=== PATIENT | female | born 1975 | race Caucasian/White ===

== ENCOUNTER 2018-08-14 11:34 | Inpatient (IN) | payer OTHER, MEDICAID ==
[~2018-08-14] VITALS: Ht 157.5 cm; Wt 85.3 kg
[~2018-08-14 11:34] MED LIST: ASPI-1159 PO; ATOR-2 PO; CARV6.2548 PO; CETI-101 PO; CLOP75TA33 PO; CYCL5TAB PO; GLIM4TAB2 PO; ISOS60TA4 PO; JARDIANCE PO; LOSA25TA12 PO; N325 SL; OMEP20TA15 PO; PENTOXIFYLLINE ER PO; PIOG45TA5 PO
[2018-08-14 13:10] LABS: CLARITY URINE CLEAR (CLEAR); COLOR URINE YELLOW (YELLOW); KETONES URINE NEGATIVE (NEGATIVE); LEUKOCYTE ESTERASE URINE NEGATIVE (NEGATIVE); NITRITE URINE NEGATIVE (NEGATIVE); OCCULT BLOOD URINE NEGATIVE (NEGATIVE); PROTEIN URINE NEGATIVE (NEGATIVE); SPECIFIC GRAVITY URINE 1.006 (1.005-1.030); UROBILINOGEN URINE 0.2 E.U./dL (0.2-1.0)
[2018-08-14 13:41] LABS: *AMPHETAMINES SCREEN URINE NEGATIVE (NEGATIVE); *BARBITURATES SCREEN URINE NEGATIVE (NEGATIVE); *BENZODIAZEPINES SCREEN URINE NEGATIVE (NEGATIVE); *COCAINE SCREEN URINE NEGATIVE (NEGATIVE); CANNABINOID URINE SCREEN NEGATIVE (NEGATIVE); OPIATES URINE SCREEN NEGATIVE (NEGATIVE); PHENCYCLIDINE URINE SCREEN NEGATIVE (NEGATIVE)
[2018-08-14 13:42] LABS: METHADONE URINE SCREEN NEGATIVE (NEGATIVE)
[2018-08-14 13:46] LABS: BASOPHILS % 0.7 % (0.0-2.0); EOSINOPHILS % 1.4 % (0.0-5.0); HEMATOCRIT. 38.2 % (36.0-48.0); HEMOGLOBIN. 12.7 g/dL (12.0-16.0); LYMPHOCYTES % 41.7 % (20.0-50.0); MEAN CORPUSCULAR HEMOGLOBIN 28.2 pg (28.0-32.0); MONOCYTES % 8.4 % (2.0-8.0); NEUTROPHILS % 47.8 % (40.0-76.0); PLATELET 305 x1000/uL (130-400); RED BLOOD CELL COUNT 4.49 mill/uL (4.2-5.4); RED CELL DISTRIBUTION WIDTH 16.4 % (11.6-14.6)
[2018-08-14 13:51] LABS: CHLORIDE 106 mEq/L (98-107)
[2018-08-14 13:53] LABS: PARTIAL THROMBOPLASTIN TIME 27.1 sec (23.4-31.0); PROTHROMBIN TIME 10.4 sec (9.1-11.1)
[2018-08-14 13:54] LABS: ETHANOL BLOOD < 10 mg/dL
[2018-08-14 14:00] LABS: CREATINE KINASE 91 IU/L (26-192); HCG SCREEN NEGATIVE
[2018-08-14 14:02] LABS: CREATINE KINASE MB FRACTION < 1.0 ng/mL (0.5-3.6)
[2018-08-14] MEDS ORDERED: SODIUM CHLORIDE 0.9% 1,000 ML IV ONE (14:05)
[2018-08-14] MEDS ORDERED: ASPIRIN 81MG TABLET PO ONE (14:15)
[2018-08-14 17:33] VITALS: BP 133/64
[2018-08-14 17:38] VITALS: BP 133/64
[2018-08-14] MEDS ORDERED: ONDANSETRON HCL 4MG/2ML INJ IV PRN (18:00)
[2018-08-14] MEDS ORDERED: CLONIDINE 0.1MG TABLET PO PRN (18:00)
[2018-08-14] MEDS ORDERED: MORPHINE SULFATE 2 MG/ML CPJ (NOT FOR IM USE) IV PRN (18:00)
[2018-08-14] MEDS ORDERED: DEXTROSE 50% WATER 50ML SYRINGE IV PRN (18:00)
[2018-08-14] MEDS ORDERED: GUAIFENESIN 200MG/10ML SUGAR FREE UDC PO PRN (18:00)
[2018-08-14] MEDS ORDERED: LORAZEPAM 2MG/ML CPJ IV PRN (18:00)
[2018-08-14] MEDS ORDERED: HYDROCODONE/ACETAMINOPHEN 5/325MG TABLET PO PRN (18:00)
[2018-08-14] MEDS ORDERED: DOCUSATE SODIUM 100MG CAPSULE PO PRN (18:00)
[2018-08-14] MEDS ORDERED: NA PHOS,M-B/NA PHOS,DI-BA ENEMA 118ML PR PRN (18:00)
[2018-08-14] MEDS ORDERED: MAGNESIUM/ALUMINUM HYDROXIDE/SIMETHICONE 30ML UDC PO PRN (18:00)
[2018-08-14] MEDS ORDERED: ACETAMINOPHEN 325MG TABLET PO PRN (18:00)
[2018-08-14] MEDS ORDERED: IPRATROPIUM/ALBUTEROL 0.5-3(2.5)MG/3ML NEB INH PRN (18:00)
[2018-08-14] MEDS ORDERED: DIPHENHYDRAMINE 50MG/ML VIAL IV PRN (18:00)
[2018-08-14] MEDS ORDERED: MORPHINE SULFATE 10MG/5ML ORAL SOLN UDC PO PRN (18:45)
[2018-08-14 20:00] VITALS: BP 112/68
[2018-08-14] MEDS: BLOOD SUGAR DIAGNOSTIC STRIP TEST SCH (21:00)
[2018-08-14] MEDS: INSULIN LISPRO 100 UNITS/ML SUBCUT SCH (21:00)
[2018-08-14] MEDS ORDERED: ATORVASTATIN CALCIUM 40MG TABLET PO SCH (21:00)
[2018-08-14] MEDS: SODIUM CHLORIDE 0.9% INJ 3ML FLUSH IVF SCH (21:27)
[2018-08-14 23:16] LABS: CREATINE KINASE 72 IU/L (26-192)
[2018-08-14 23:17] LABS: CREATINE KINASE MB FRACTION < 1.0 ng/mL (0.5-3.6)
[2018-08-15] VITALS: BP 104/64
[2018-08-15 04:00] VITALS: BP 112/75
[2018-08-15] MEDS: SODIUM CHLORIDE 0.9% INJ 3ML FLUSH IVF SCH ×2 (05:03→14:00)
[2018-08-15] MEDS: BLOOD SUGAR DIAGNOSTIC STRIP TEST SCH ×2 (06:27→12:02)
[2018-08-15] MEDS: INSULIN LISPRO 100 UNITS/ML SUBCUT SCH ×2 (06:27→12:06)
[2018-08-15 07:45] LABS: BASOPHILS % 0.5 % (0.0-2.0); EOSINOPHILS % 1.4 % (0.0-5.0); HEMATOCRIT. 38.5 % (36.0-48.0); LYMPHOCYTES % 33.9 % (20.0-50.0); MEAN CORPUSCULAR HEMOGLOBIN 28.5 pg (28.0-32.0); MEAN CORPUSCULAR VOLUME 84.4 fL (81.0-99.0); MEAN PLATELET VOLUME 7.4 fl (7.4-10.4); MONOCYTES % 7.3 % (2.0-8.0); NEUTROPHILS % 56.9 % (40.0-76.0); PLATELET 314 x1000/uL (130-400); RED BLOOD CELL COUNT 4.56 mill/uL (4.2-5.4); RED CELL DISTRIBUTION WIDTH 15.8 % (11.6-14.6)
[2018-08-15 07:50] LABS: CHLORIDE 104 mEq/L (98-107)
[2018-08-15 07:59] LABS: CREATINE KINASE MB FRACTION < 1.0 ng/mL (0.5-3.6)
[2018-08-15 08:00] VITALS: BP 116/74
[2018-08-15 08:07] LABS: LDL CHOLESTEROL 99 mg/dL (5-100)
[2018-08-15 08:08] LABS: CREATINE KINASE 60 IU/L (26-192)
[2018-08-15 08:11] LABS: HDL CHOLESTEROL 33 mg/dL (40-59)
[2018-08-15 08:13] LABS: T4 FREE 1.03 ng/dL (0.76-1.46)
[2018-08-15] MEDS ORDERED: CARVEDILOL 3.125 MG TABLET PO SCH (09:00)
[2018-08-15] MEDS ORDERED: ASPIRIN 81MG EC TABLET PO SCH (09:00)
[2018-08-15] MEDS ORDERED: CLOPIDOGREL 75MG TABLET PO SCH (09:00)
[2018-08-15] MEDS ORDERED: LOSARTAN POTASSIUM 25 MG TABLET PO SCH (09:00)
[2018-08-15 12:04] VITALS: BP 112/70
[2018-08-15 16:05] VITALS: BP 101/57
== END 2018-08-15 16:35 | disposition home or self-care (01) | DRG 207 ==
LOC: ER 11:34 → 8WST 14:15 → ENRESERV 15:28 → 8WST 17:49
PROVIDERS: ADMIT Internal Medicine; ATTEND Internal Medicine
DX: I95.9 Hypotension, unspecified (principal); I11.9 Hypertensive heart disease without heart failure; D64.9 Anemia, unspecified; E78.00 Pure hypercholesterolemia, unspecified; E78.49 Other hyperlipidemia; E11.9 Type 2 diabetes mellitus without complications; R07.9 Chest pain, unspecified; E78.5 Hyperlipidemia, unspecified; I25.10 Atherosclerotic heart disease of native coronary artery without angina pectoris; M79.671 Pain in right foot; I25.2 Old myocardial infarction; Z82.49 Family history of ischemic heart disease and other diseases of the circulatory system; Z95.1 Presence of aortocoronary bypass graft; Z95.5 Presence of coronary angioplasty implant and graft; Z79.82 Long term (current) use of aspirin; Z79.899 Other long term (current) drug therapy
CPT/HCPCS: 36415; 71045; 73630; 80061; 80305; 82550; 82553; 82962; 83036; 83880; 84439; 84443; 84484; 84703; 93005; 93306; 99285; G0482; J1815; J7030

== ENCOUNTER 2018-10-26 14:50 | Emergency (ER) | payer MEDICAID ==
[~2018-10-26] VITALS: Ht 154.9 cm; Wt 82.0 kg
[2018-10-26] MEDS ORDERED: FURO20TA4 MT (15:51)
[2018-10-26] MEDS ORDERED: IBUPROFEN 600MG TABLET PO ONE (16:30)
[2018-10-26 16:43] VITALS: BP 91/63
== END 2018-10-26 17:04 | disposition home or self-care (01) ==
LOC: ER 14:50
DX: S76.912A Strain of unspecified muscles, fascia and tendons at thigh level, left thigh, initial encounter (principal); S76.911A Strain of unspecified muscles, fascia and tendons at thigh level, right thigh, initial encounter; E11.9 Type 2 diabetes mellitus without complications; E78.00 Pure hypercholesterolemia, unspecified; I11.9 Hypertensive heart disease without heart failure; Z98.62 Peripheral vascular angioplasty status; Z95.1 Presence of aortocoronary bypass graft; Z79.82 Long term (current) use of aspirin; Z79.899 Other long term (current) drug therapy; X58.XXXA Exposure to other specified factors, initial encounter; Y93.89 Activity, other specified; Y92.89 Other specified places as the place of occurrence of the external cause; Y99.8 Other external cause status
CPT/HCPCS: 99282

== ENCOUNTER 2019-03-08 19:55 | Emergency (ER) | payer MEDICAID ==
[~2019-03-08] VITALS: Ht 157.5 cm; Wt 84.0 kg
[~2019-03-08 19:55] MED LIST changes: -ASPI-1159 PO; +ASPI-1393 PO; +FURO20TA4 MT; -LOSA25TA12 PO; +LOSA25TA26 PO
[2019-03-08 20:31] VITALS: BP 125/69
== END 2019-03-08 22:37 | disposition left against medical advice (07) ==
LOC: ER 19:55
DX: Z53.21 Procedure and treatment not carried out due to patient leaving prior to being seen by health care provider (principal)
CPT/HCPCS: 93005

== ENCOUNTER 2019-03-14 13:05 | Inpatient (IN) | payer OTHER, MEDICAID ==
[~2019-03-14] VITALS: Ht 157.5 cm; Wt 83.6 kg
[2019-03-14 14:07] LABS: CHLORIDE 107 mEq/L (98-107)
[2019-03-14 14:17] LABS: HCG SCREEN NEGATIVE
[2019-03-14] MEDS ORDERED: ASPIRIN 81MG TABLET PO ONE (15:30)
[2019-03-14] MEDS ORDERED: NITROGLYCERIN 0.4MG TABLET SL SL ONE (15:30)
[2019-03-14 16:36] LABS: BASOPHILS % 0.7 % (0.0-2.0); EOSINOPHILS % 1.2 % (0.0-5.0); HEMATOCRIT. 38.5 % (36.0-48.0); HEMOGLOBIN. 12.8 g/dL (12.0-16.0); LYMPHOCYTES % 35.8 % (20.0-50.0); MEAN CORPUSCULAR HEMOGLOBIN 28.6 pg (28.0-32.0); MEAN PLATELET VOLUME 7.2 fl (7.4-10.4); NEUTROPHILS % 55.3 % (40.0-76.0); PLATELET 297 x1000/uL (130-400); RED BLOOD CELL COUNT 4.48 mill/uL (4.2-5.4); RED CELL DISTRIBUTION WIDTH 16.5 % (11.6-14.6)
[2019-03-14] MEDS ORDERED: CLONIDINE 0.1MG TABLET PO PRN (17:45)
[2019-03-14] MEDS ORDERED: DOCUSATE SODIUM 100MG CAPSULE PO PRN (17:45)
[2019-03-14] MEDS ORDERED: ACETAMINOPHEN 325MG TABLET PO PRN (17:45)
[2019-03-14] MEDS ORDERED: GUAIFENESIN 200MG/10ML SUGAR FREE UDC PO PRN (17:45)
[2019-03-14] MEDS ORDERED: LORAZEPAM 2MG/ML CPJ IV PRN (17:45)
[2019-03-14] MEDS ORDERED: MAGNESIUM/ALUMINUM HYDROXIDE/SIMETHICONE 30ML UDC PO PRN (17:45)
[2019-03-14] MEDS ORDERED: IPRATROPIUM/ALBUTEROL 0.5-3(2.5)MG/3ML NEB INH PRN (17:45)
[2019-03-14] MEDS ORDERED: ONDANSETRON HCL 4MG/2ML INJ IV PRN (17:45)
[2019-03-14] MEDS ORDERED: HYDROCODONE/ACETAMINOPHEN 5/325MG TABLET PO PRN (17:45)
[2019-03-14] MEDS ORDERED: MORPHINE SULFATE 2 MG/ML CPJ (NOT FOR IM USE) IV PRN (18:00)
[2019-03-14] MEDS ORDERED: NA PHOS,M-B/NA PHOS,DI-BA ENEMA 118ML PR PRN (21:00)
[2019-03-14 21:15] VITALS: BP 120/64
[2019-03-14] MEDS ORDERED: DEXTROSE 50% WATER 50ML SYRINGE IV PRN (22:30)
[2019-03-14] MEDS: AMLODIPINE 10MG TABLET PO SCH (22:33)
[2019-03-14] MEDS ORDERED: PENT400T16 PO (23:52)
[2019-03-14] MEDS ORDERED: EMPA25TA PO (23:58)
[2019-03-15] VITALS: BP 106/52
[2019-03-15 00:40] LABS: CREATINE KINASE 65 IU/L (26-192)
[2019-03-15 04:00] VITALS: BP 100/52
[2019-03-15] MEDS: BLOOD SUGAR DIAGNOSTIC STRIP TEST SCH ×3 (05:55→17:56)
[2019-03-15] MEDS: INSULIN LISPRO 100 UNITS/ML SUBCUT SCH ×3 (07:37→18:03)
[2019-03-15 08:00] VITALS: BP 115/59
[2019-03-15] MEDS ORDERED: CLOPIDOGREL 75MG TABLET PO SCH (09:00)
[2019-03-15] MEDS ORDERED: ISOSORBIDE MONONITRATE 60MG TABLET SR 24HR PO SCH (09:00)
[2019-03-15] MEDS: AMLODIPINE 10MG TABLET PO SCH (09:00)
[2019-03-15] MEDS ORDERED: ASPIRIN 81MG EC TABLET PO SCH ×2 (09:00→17:00)
[2019-03-15] MEDS ORDERED: CARVEDILOL 6.25 MG TABLET PO SCH (09:00)
[2019-03-15 09:55] LABS: BASOPHILS % 0.5 % (0.0-2.0); EOSINOPHILS % 1.3 % (0.0-5.0); HEMATOCRIT. 41.3 % (36.0-48.0); HEMOGLOBIN. 13.6 g/dL (12.0-16.0); MEAN CORPUSCULAR HEMOGLOBIN 28.2 pg (28.0-32.0); MEAN PLATELET VOLUME 7.7 fl (7.4-10.4); MONOCYTES % 6.5 % (2.0-8.0); NEUTROPHILS % 61.7 % (40.0-76.0); PLATELET 313 x1000/uL (130-400); RED CELL DISTRIBUTION WIDTH 16.5 % (11.6-14.6)
[2019-03-15 10:09] LABS: CHLORIDE 108 mEq/L (98-107)
[2019-03-15] MEDS ORDERED: REGADENOSON 0.4 MG/5 ML IV NR (10:15)
[2019-03-15 10:16] LABS: LDL CHOLESTEROL 106 mg/dL (5-100)
[2019-03-15 10:18] LABS: CREATINE KINASE 54 IU/L (26-192); HDL CHOLESTEROL 30 mg/dL (40-59)
[2019-03-15] MEDS ORDERED: LOSARTAN POTASSIUM 25 MG TABLET PO SCH (10:30)
[2019-03-15] MEDS ORDERED: REGADENOSON 0.4 MG/5 ML IV ONE (12:33)
[2019-03-15 16:00] VITALS: BP 120/60
[2019-03-15 20:00] VITALS: BP 97/54
[2019-03-15 20:15] VITALS: BP 97/54
== END 2019-03-15 20:43 | disposition home or self-care (01) | DRG 198 ==
LOC: ER 16:11 → 7WST 16:12 → ENRESERV 20:29
PROVIDERS: ADMIT Hospitalist; ATTEND Hospitalist
DX: I25.110 Atherosclerotic heart disease of native coronary artery with unstable angina pectoris (principal); I24.9 Acute ischemic heart disease, unspecified; E11.9 Type 2 diabetes mellitus without complications; E66.9 Obesity, unspecified; E78.00 Pure hypercholesterolemia, unspecified; E78.5 Hyperlipidemia, unspecified; I10 Essential (primary) hypertension; I25.2 Old myocardial infarction; Z95.1 Presence of aortocoronary bypass graft; Z95.5 Presence of coronary angioplasty implant and graft; Z79.899 Other long term (current) drug therapy; Z68.33 Body mass index [BMI] 33.0-33.9, adult
CPT/HCPCS: 36415; 71045; 78452; 80061; 82550; 82962; 83880; 84484; 84703; 93005; 93017; 93306; 93970; 99285; A9500; J1815; J2785